=== PATIENT | male | born 1970 | race Caucasian/White ===

== ENCOUNTER 2018-07-02 19:06 | Emergency (ER) | payer MEDICAID ==
[~2018-07-02] VITALS: Ht 170.2 cm; Wt 104.3 kg
[2018-07-02 19:50] VITALS: BP 123/87
[2018-07-02] MEDS ORDERED: KETOROLAC TROMETH 60MG/2ML VIAL IM ONE (21:45)
[2018-07-02] MEDS ORDERED: DEXAMETHASONE SOD PHOS 10MG/1ML VIAL INJ IM ONE (21:45)
== END 2018-07-02 22:20 | disposition home or self-care (01) ==
LOC: ER 19:06
DX: S02.5XXA Fracture of tooth (traumatic), initial encounter for closed fracture (principal); K02.9 Dental caries, unspecified; X58.XXXA Exposure to other specified factors, initial encounter; Y93.89 Activity, other specified; Y99.8 Other external cause status; Y92.89 Other specified places as the place of occurrence of the external cause
CPT/HCPCS: 96372; 99284; J1100; J1885